=== PATIENT | female | born 1995 | race Caucasian/White ===

== ENCOUNTER 2016-10-03 12:12 | Emergency (ER) | payer MEDICAID ==
--- NOTE | 2016-10-03 13:26 | Emergency Department Report ---
Entered by ANNETTE ROJAS, acting as scribe for BALDEMAR SALOMON NP. Chief Complaint: Fever Stated Complaint: FEVER.COUGH.VOMITING Time Seen by Provider: 10/03/16 12:30 - HPI History of Present Illness: 21 y/o female present c/o dizziness that caused a fall at work earlier today. Sx include fever, cough, N/V with blood. Positive sick contacts, son and have URI Sx. Pt has Hx of DM. LMP-currently on. NAD VSS MAEW no focal or neuro deficit ambulatory family ill non toxic I beleive she is here bc of issues at work. - ROS Review of Systems: as noted in HPI - Exam Vital Signs: Vital Signs 10/03/16 12:21 Temperature 99.5 F Pulse Rate 96 H Respiratory 18 Rate Blood Pressure 131/80 O2 Sat by Pulse 97 Oximetry Physical Exam: as noted in HPI MSE screening note: Focused history and physical exam performed. Due to findings the following was ordered: ED Disposition for MSE Condition: Stable This documentation as recorded by the scribe,ANNETTE ROJAS,accurately reflects the service I personally performed and the decisions made by me,BALDEMAR SALOMON NP.
[2016-10-03 15:13] LABS: Basophils % (Auto) 0.8 % (0.0-1.8); Eosinophils % (Auto) 1.6 % (0.0-4.3); Hematocrit 41.7 % (30.3-42.9); Hemoglobin 13.6 gm/dl (10.1-14.3); Mean Corpuscular HGB Conc 33 % (30-34); Mean Corpuscular Hemoglobin 28 pg (28-32); Mean Corpuscular Volume 87 fl (79-97); Platelet Count 219 K/mm3 (140-440); Red Cell Distribution Width 14.6 % (13.2-15.2); White Blood Count 6.5 K/mm3 (4.5-11.0)
--- NOTE | 2016-10-03 15:26 | Emergency Department Report ---
ED General Adult HPI - General Chief complaint: Fever Stated complaint: FEVER.COUGH.VOMITING Time Seen by Provider: 10/03/16 14:40 Source: patient Mode of arrival: Ambulatory Limitations: No Limitations - History of Present Illness Initial comments: PT c/o fever and cough x 2 days. PT states she tried to call out of work last night but her boss would not let her. PT states she works at [employer]. 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 PT states at work today she threw up 5 times and had 3 episodes of diarrhea. PT states she had a syncopal episode. PT states her coworker assisted her to ground and she quickly regained consciousness and was assisted to couch. At that time, a family member was called to pick her up from work. PT states her is currently sick with the same thing. Complaint: syncope Location: head, chest, back, abdomen Severity scale (0 -10): 8 Quality: aching (all over ) Improves with: none Worsens with: other (working ) Associated Symptoms: cough, fever/chills, loss of appetite, malaise, nausea/ vomiting, weakness (generalized ) Treatments Prior to Arrival: none - Related Data Home Medications Medication Instructions Recorded Confirmed Last Taken Ibuprofen [Motrin 200 MG tab] 2 tab PO Q6H PRN 10/03/16 10/03/16 10/03/16 Allergies Allergy/AdvReac Type Severity Reaction Status Date / Time Penicillins Allergy Hives Verified 02/26/14 19:25 ED Review of Systems ROS: Stated complaint: FEVER.COUGH.VOMITING Other details as noted in HPI Comment: All other systems reviewed and negative ENT: ear pain, throat pain, congestion Respiratory: cough Cardiovascular: syncope. denies: chest pain Endocrine: denies: increased hunger, increased thirst, increased urine Gastrointestinal: abdominal pain, nausea, vomiting, diarrhea Genitourinary: denies: dysuria, frequency Musculoskeletal: back pain Neurological: weakness (generalized ) ED Past Medical Hx - Past Medical History Previous Medical History?: Yes Hx Hypertension: No Hx CVA: No Hx Heart Attack/AMI: No Hx Congestive Heart Failure: No Hx Diabetes: Yes (gestational ) Hx Deep Vein Thrombosis: No Hx Pulmonary Embolism: No Hx GERD: No Hx Liver Disease: No Hx Renal Disease: No Hx Sickle Cell Disease: No Hx Arthritis: No Hx Headaches / Migraines: No Hx Seizures: No Hx Kidney Stones: No Hx Psychiatric Treatment: No Hx Asthma: Yes Hx COPD: No Hx Tuberculosis: No Hx Dementia: No Hx HIV: No Additional medical history: Vaginal [id number] - Surgical History Past Surgical History?: No Hx Coronary Stent: No Hx Open Heart Surgery: No Hx Pacemaker: No Hx Internal Defibrillator: No Hx Cholecystectomy: No Hx Appendectomy: No Hx Breast Surgery: No - Family History Family history: diabetes (strong family hx ) - Social History Smoking Status: Never Smoker Substance Use Type: Non Opiate Pain - Medications Home Medications: Home Medications Medication Instructions Recorded Confirmed Last Taken Type Ibuprofen [Motrin 200 MG tab] 2 tab PO Q6H PRN 10/03/16 10/03/16 10/03/16 History ED Physical Exam - General Limitations: No Limitations General appearance: alert, in no apparent distress - Head Head exam: Present: atraumatic, normocephalic, normal inspection - Eye Eye exam: Present: normal appearance, PERRL, EOMI. Absent: conjunctival injection - ENT ENT exam: Present: normal exam, normal orophraynx, mucous membranes moist, TM's normal bilaterally, normal external ear exam - Neck Neck exam: Present: normal inspection, full ROM. Absent: tenderness, lymphadenopathy - Respiratory Respiratory exam: Present: normal lung sounds bilaterally, other (cough noted during exam ). Absent: respiratory distress, wheezes - Cardiovascular Cardiovascular Exam: Present: regular rate, normal rhythm, normal heart sounds - GI/Abdominal GI/Abdominal exam: Present: soft, tenderness, normal bowel sounds. Absent: guarding, rebound - Extremities Exam Extremities exam: Present: normal inspection, full ROM, normal capillary refill - Back Exam Back exam: Present: normal inspection, full ROM, other (no point tenderness but pt reports lbp ). Absent: tenderness, CVA tenderness (R), CVA tenderness (L) - Neurological Exam Neurological exam: Present: alert, oriented X3, CN II-XII intact - Psychiatric Psychiatric exam: Present: normal affect, normal mood - Skin Skin exam: Present: warm, dry, intact, normal color ED Course Vital Signs 10/03/16 10/03/16 12:21 16:24 Temperature 99.5 F Pulse Rate 96 H Pulse Rate [ 87 Lying] Respiratory 18 Rate Blood Pressure 131/80 Blood Pressure 103/68 [Lying] O2 Sat by Pulse 97 Oximetry - Reevaluation(s) Reevaluation #1: 10/03/16 15:31 PT aware of plan of care. No questions at this time. Reevaluation #2: 10/03/16 17:29 Pt mildly orthostatic, pt given 1LNS bolus. PT states she is feeling better. PT aware of lab results. PT aware she will need to change positions slowly. PT verbalizes understanding. PT has no questions at this time. - Pulse Oximetry Interpretation Digit-Finger Initial Pulse Oximetry Readin Actions Taken: none ED Medical Decision Making - Lab Data Result diagrams: 10/03/16 15:03 10/03/16 15:03 - EKG Data -: EKG Interpreted by Me EKG shows normal: sinus rhythm Rate: normal (94) - Differential Diagnosis dehydration, uri, age, viral syndrome Critical Care Time: No Critical care attestation.: If time is entered above; I have spent that time in minutes in the direct care of this critically ill patient, excluding procedure time. ED Disposition Clinical Impression: Viral syndrome, Orthostatic hypotension Nausea & vomiting Qualifiers: Vomiting type: unspecified Vomiting Intractability: non-intractable Qualified Code(s): R11.2 - Nausea with vomiting, unspecified Disposition: DISCHARGED TO HOME OR SELFCARE Is pt being admited?: No Does the pt Need Aspirin: No Condition: Stable Instructions: Gastroenteritis (ED), Acute Nausea and Vomiting (ED), Viral Syndrome (ED), Syncope (ED), Hypotension (ED) Additional Instructions: Change positions slowly Clear liquid diet today, and then advance as tolerated Referrals: PRIMARY CARE, [Primary Care Provider] - 3-5 Days Forms: Work/School Release Form(ED) Time of Disposition: 17:35
[2016-10-03 15:42] LABS: Alanine Aminotransferase 24 units/L (7-56); Albumin 3.9 g/dL (3.9-5); Albumin/Globulin Ratio 1.2 %; Alkaline Phosphatase 81 units/L (35-129); Anion Gap 20 mmol/L; Bilirubin,Total 0.2 mg/dL (0.1-1.2); Blood Urea Nitrogen 11 mg/dL (7-17); Calcium 8.9 mg/dL (8.4-10.2); Carbon Dioxide 24 mmol/L (22-30); Chloride 100.9 mmol/L (98-107); Glucose 104 mg/dL (65-100); Lipase 14 units/L (13-60); Potassium 4.2 mmol/L (3.6-5.0); Sodium 141 mmol/L (137-145); Total Protein 7.1 g/dL (6.3-8.2)
[2016-10-03] MEDS ORDERED: NACL 0.9% 1000 ML 1,000 ML IV ONE (16:25)
[2016-10-03 16:26] VITALS: BP 103/68
[2016-10-03 16:43] LABS: Bilirubin,Urine NEG (Negative); Blood,Urine SM (Negative); Ketones,Urine NEG (Negative); Leukocyte Esterase,Urine NEG (Negative); Nitrite,Urine NEG (Negative); Protein,Urine <15 mg/dL mg/dL (Negative); Urobilinogen,Urine < 2.0 mg/dL (<2.0); WBC,Urine < 1.0 /HPF (0.0-6.0)
[2016-10-03] MEDS ORDERED: ZOFRAN IV ONE (16:50)
[2016-10-03] MEDS ORDERED: TORADOL IV ONE (16:50)
== END 2016-10-03 17:50 | disposition home or self-care (01) ==
LOC: ED 12:12
DX: B34.9 Viral infection, unspecified (principal); I95.1 Orthostatic hypotension; R11.2 Nausea with vomiting, unspecified; J45.909 Unspecified asthma, uncomplicated; Z88.0 Allergy status to penicillin
CPT/HCPCS: 36415; 80053; 81001; 81025; 83690; 85025; 93005; 93010; 96361; 96374; 96375; 99283; J1885; J2405; J7030